=== PATIENT | male | born 1945 | race Two or more races ===

== ENCOUNTER 2023-03-22 20:57 | Inpatient (IN) | payer OTHER ==
[~2023-03-22] VITALS: Ht 177.8 cm; Wt 83.9 kg
[2023-03-22] MEDS ORDERED: IOHEXOL-350 100 ML BOTTLE ONE (22:47)
[2023-03-22 23:12] LABS: DIFFERENTIAL COMMENT 1; HEMATOCRIT. 25.9 % (42.0-52.0); HEMOGLOBIN. 8.3 g/dL (14.0-18.0); MEAN CORPUSCULAR HEMOGLOBIN 26.4 pg (28.0-32.0); MEAN CORPUSCULAR HGB CONC 32.2 g/dL (31.0-37.0); MEAN CORPUSCULAR VOLUME 82.2 fL (80.0-94.0); MEAN PLATELET VOLUME 7.7 fl (7.4-10.4); PLATELET 225 x1000/uL (130-400); RED BLOOD CELL COUNT 3.15 mill/uL (4.7-6.1); RED CELL DISTRIBUTION WIDTH 15.2 % (11.6-14.6); WHITE BLOOD COUNT 9.8 x1000/uL (4.5-11.0)
[2023-03-22] MEDS ORDERED: VANCOMYCIN 1G PREMIX 200 ML IV ONE (23:15)
[2023-03-22] MEDS ORDERED: SODIUM CHLORIDE 0.9% 1000ML BAG (SEPSIS BOLUS) IV ONE (23:15)
[2023-03-22] MEDS ORDERED: PIPERACILLIN/TAZ 3.375G PREMIX 50 ML IV ONE (23:15)
[2023-03-22 23:19] LABS: INR 1.1
[2023-03-22 23:22] LABS: CLARITY URINE TURBID (CLEAR); COLOR URINE ORANGE (YELLOW); GLUCOSE URINE NEGATIVE (NEGATIVE); KETONES URINE NEGATIVE (NEGATIVE); LEUKOCYTE ESTERASE URINE 3+ (NEGATIVE); NITRITE URINE POSITIVE (NEGATIVE); OCCULT BLOOD URINE 3+ (NEGATIVE); PH URINE 6.5 (4.5-8.0); PROTEIN URINE 3+ (NEGATIVE); SPECIFIC GRAVITY URINE 1.024 (1.005-1.030)
[2023-03-22 23:28] LABS: ALANINE AMINOTRANSFERASE < 7 IU/L (10-49); ALBUMIN 4.1 g/dL (3.2-4.8); ASPARTATE AMINOTRANSFERASE 24 IU/L (<34); BILIRUBIN TOTAL 0.5 mg/dL (0.1-1.0); CALCIUM 9.4 mg/dL (8.7-10.4); CARBON DIOXIDE 23 mEq/L (21-32); CHLORIDE 98 mEq/L (98-107); CREATINE KINASE 116 IU/L (46-171); GLUCOSE 115 mg/dL (70-105); POTASSIUM 3.4 mEq/L (3.5-5.1); PROTEIN TOTAL 7.6 g/dL (6.0-8.3); SODIUM 133 mEq/L (136-145); UREA NITROGEN BLOOD 22 mg/dL (9-23)
[2023-03-22] MEDS ORDERED: ACETAMINOPHEN 650MG SUPP PR SCH (23:30)
[2023-03-22 23:34] LABS: ETHANOL BLOOD < 10 mg/dL (<10); TROPONIN I HIGH SENSITIVITY 319 ng/L (3.0-53)
[2023-03-22 23:35] LABS: *AMPHETAMINES SCREEN URINE NEGATIVE (NEGATIVE); *BARBITURATES SCREEN URINE NEGATIVE (NEGATIVE); *BENZODIAZEPINES SCREEN URINE NEGATIVE (NEGATIVE); *COCAINE SCREEN URINE NEGATIVE (NEGATIVE); CANNABINOID URINE SCREEN NEGATIVE (NEGATIVE); ECSTASY MDMA SCREEN URINE NEGATIVE (NEGATIVE); METHADONE URINE SCREEN Neg (NEGATIVE); OPIATES URINE SCREEN NEGATIVE (NEGATIVE); PHENCYCLIDINE URINE SCREEN NEGATIVE (NEGATIVE)
[2023-03-22 23:40] LABS: ANISOCYTOSIS 1+; PLATELET ESTIMATE NORMAL
[2023-03-22] MEDS ORDERED: CEFEPIME 2,000 MG in DEXT 5% WATER 100 ML IV STA (23:42)
[2023-03-22 23:44] LABS: BACTERIA URINE 3+
[2023-03-22 23:45] LABS: RBC URINE TNTC /hpf (0-2); SQUAMOUS EPITHELIAL CELL URINE FEW /lpf (RARE/1+); WBC URINE TNTC /hpf (0-2)
[2023-03-22] MEDS ORDERED: CEFEPIME 2,000 MG in DEXT 5% WATER 100 ML IV SCH (23:45)
[2023-03-23] MEDS ORDERED: KCL 10MEQ/50ML PREMIX 50 ML IV ONE
[2023-03-23] MEDS ORDERED: DOCUSATE SODIUM 100MG CAPSULE PO PRN (12:00)
[2023-03-23] MEDS ORDERED: CLONIDINE 0.1MG TABLET PO PRN (12:00)
[2023-03-23] MEDS ORDERED: ONDANSETRON HCL 4MG/2ML INJ IV PRN (12:00)
[2023-03-23] MEDS ORDERED: HYDROCODONE/ACETAMINOPHEN 5/325MG TABLET PO NR (12:00)
[2023-03-23] MEDS ORDERED: ACETAMINOPHEN 325MG TABLET PO PRN ×2 (12:00)
[2023-03-23] MEDS ORDERED: IPRATROPIUM/ALBUTEROL 0.5-3(2.5)MG/3ML NEB HHN PRN (12:00)
[2023-03-23] MEDS ORDERED: CEFTRIAXONE 1GM PREMIX 50 ML IV NR (12:45)
[2023-03-23] MEDS ORDERED: POTASSIUM CHLORIDE 20MEQ TABLET SR PO NR (13:00)
[2023-03-23 15:56] VITALS: BP 137/71; PULSE 87; RESP 15; TEMP 97.8
[2023-03-23 16:00] VITALS: BP 130/67; PULSE 89; RESP 17; TEMP 97.8
[2023-03-23 18:00] VITALS: BP 135/70; PULSE 89; RESP 19
[2023-03-23 20:00] VITALS: BP 140/72; PULSE 96; RESP 20; TEMP 97.3
[2023-03-23 22:00] VITALS: BP 135/69; PULSE 94; RESP 20
[2023-03-23] MEDS: HYDROCODONE/ACETAMINOPHEN 5/325MG TABLET PO PRN (23:32)
[2023-03-24] VITALS (13 sets, daily range): BP systolic 129–155; BP diastolic 62–120; PULSE 86–106; RESP 13–23; TEMP 97.5–98.2; O2SAT 98
[2023-03-24 02:09] LABS: TROPONIN I HIGH SENSITIVITY 1008 ng/L (3.0-53)
[2023-03-24 06:29] LABS: HEMATOCRIT. 22.9 % (42.0-52.0); HEMOGLOBIN. 7.3 g/dL (14.0-18.0); MEAN CORPUSCULAR HEMOGLOBIN 26.8 pg (28.0-32.0); MEAN CORPUSCULAR VOLUME 83.8 fL (80.0-94.0); MEAN PLATELET VOLUME 7.8 fl (7.4-10.4); PLATELET 212 x1000/uL (130-400); RED BLOOD CELL COUNT 2.74 mill/uL (4.7-6.1); RED CELL DISTRIBUTION WIDTH 15.1 % (11.6-14.6); WHITE BLOOD COUNT 9.2 x1000/uL (4.5-11.0)
[2023-03-24 07:00] LABS: DIFFERENTIAL COMMENT 1
[2023-03-24 07:33] LABS: HEPATITIS B SURFACE ANTIGEN NEGATIVE (Negative); HEPATITIS C AB NON REACTIVE (Neg) (Negative)
[2023-03-24 07:37] LABS: CALCIUM 8.8 mg/dL (8.7-10.4); CARBON DIOXIDE 22 mEq/L (21-32); CHLORIDE 102 mEq/L (98-107); CHOLESTEROL 154 mg/dL (<200); CREATININE 0.8 mg/dL (0.6-1.3); GLUCOSE 92 mg/dL (70-105); HDL CHOLESTEROL 38 mg/dL (>55); LDL CHOLESTEROL 78 mg/dL (5-100); SODIUM 136 mEq/L (136-145); TRIGLYCERIDE 115 mg/dL (0-150); UREA NITROGEN BLOOD 23 mg/dL (9-23)
[2023-03-24] MEDS ORDERED: POTASSIUM CHLORIDE INJ 40 MEQ in DEXT 5% WATER 250 ML IV ONE (08:45)
[2023-03-24] MEDS ORDERED: NALOXONE HCL 0.4MG/ML VIAL IV PRN (09:00)
[2023-03-24 09:38] LABS: CALCIUM 8.9 mg/dL (8.7-10.4); CARBON DIOXIDE 22 mEq/L (21-32); CHLORIDE 101 mEq/L (98-107); CREATININE 0.8 mg/dL (0.6-1.3); GLUCOSE 93 mg/dL (70-105); POTASSIUM 3.1 mEq/L (3.5-5.1); SODIUM 135 mEq/L (136-145); UREA NITROGEN BLOOD 23 mg/dL (9-23)
[2023-03-24 09:41] LABS: TROPONIN I HIGH SENSITIVITY 723 ng/L (3.0-53)
[2023-03-24] MEDS: HYDROCODONE/ACETAMINOPHEN 5/325MG TABLET PO PRN ×3 (10:29→21:46)
[2023-03-24] MEDS: KCL 20MEQ/100ML X 2 FOR TOTAL KCL 40MEQ/200ML IV SCH ×2 (11:20→15:11)
[2023-03-24] MEDS ORDERED: CEFTRIAXONE 1,000 MG in DEXTROSE 5% WATER 50 ML IV SCH (13:00)
[2023-03-24 16:31] LABS: ANISOCYTOSIS 1+; PLATELET ESTIMATE NORMAL
== END 2023-03-24 23:10 | disposition short-term general hospital (02) | DRG 871 ==
LOC: ER 20:57 → MICUSO 23:55 → 5EST 03-23 15:31
PROVIDERS: ADMIT Internal Medicine; ATTEND Internal Medicine
DX: A41.50 Gram-negative sepsis, unspecified (principal); G93.41 Metabolic encephalopathy; N39.0 Urinary tract infection, site not specified; E87.1 Hypo-osmolality and hyponatremia; G45.9 Transient cerebral ischemic attack, unspecified; C79.51 Secondary malignant neoplasm of bone; D64.9 Anemia, unspecified; T45.1X5A Adverse effect of antineoplastic and immunosuppressive drugs, initial encounter; E11.9 Type 2 diabetes mellitus without complications; E87.6 Hypokalemia; I10 Essential (primary) hypertension; Z85.46 Personal history of malignant neoplasm of prostate; Z86.718 Personal history of other venous thrombosis and embolism; Z88.0 Allergy status to penicillin; Z92.3 Personal history of irradiation; Z79.4 Long term (current) use of insulin; Y92.89 Other specified places as the place of occurrence of the external cause
CPT/HCPCS: 36415; 70496; 70498; 70551; 71045; 74176; 80048; 80053; 80061; 80305; 80320; 81003; 82550; 82962; 83605; 83735; 83880; 84145; 84153; 84484; 85025; 86705; 87077; 87186; 87340; 87426; 93005; 93306; 93970; 97166; 99291; A6261; J0692; J0696; J2543; J3370; J3480; J7030; J7060; Q9967; G0103; G0480